=== PATIENT | female | born 2005 | race Caucasian/White ===

== ENCOUNTER 2024-11-10 13:07 | Outpatient (AMB) | payer OTHER, SELFPAY ==
[2024-11-10 13:14] VITALS: BMI 17.8
--- NOTE | 2024-11-10 13:14 | A.SPINEOV_ITS ---
Vital Signs 11/10/24 13:14 Height 5 ft 4 in Weight 104 lb BMI 17.8 Intake Visit Reasons: chronic midline low back pain Intake Note: Ms. Villa is here today c/o Chronic midline to Low back pain. Contracting Support Specialist Required: No Allergies No Known Allergies Allergy (Verified 11/10/24 13:15) Assessment & Plan Assessment & Plan (1) Lumbar radiculopathy: Code(s): M54.16 - Radiculopathy, lumbar region Category: Medical Plan Dear LORNE Eagle, Thank you for referring Wen to our office today. She is a pleasant 19-year-old female who comes in today for evaluation of low back pain and shooting pain into her bilateral lower extremities. She reports this has been ongoing for about 2 years. She denies any known inciting incident for pain. She reports that he has waxed/waned in intensity since initial onset, but more recently over the course of the last year or so it has significantly worsened. When describing the pain she reports that it starts in her low back, travels into her posterior buttocks, over the lateral thigh, and down toward the lateral calf terminating near the top of her foot. This happens in both her right and left leg, however she reports her right leg pain is worse. Her pain has now gotten to the point where she is unable to properly sleep at night and wakes up several times throughout the night in pain. She states that standing and walking exacerbates her pain, and that sitting down helps to alleviate it. She has attempted OTC medication such as tylenol / ibuprofen but states it does not help the pain at all. She has also attempted physical therapy but states this only caused her worsening / increased pain. She states that she did attempt an injection with our colleagues at [facility], however reports it was fairly traumatic for her in terms of pain, and further states that about 1-2 weeks after the injection she began experiencing nocturnal enuresis. This has now progressed to daytime enuresis as well. She reports that if she does not take 1-2 of her desmopressin pills at night before bed she will wet herself, and will be more likely to have episodes of incontinence throughout the day as well. She denies any issues with bowel incontinence, and denies any perineal numbness. PMH: Subclinical hyperthyroidism, anxiety disorder, depressive disorder, panic disorder, fibromyalgia, juvenile idiopathic arthritis, migraines. Social hx: The patient vapes nicotine and uses cannabis recreationally. Denies any other substance use. Medications: Desmopressin, aripiprazole, dextroamphetamine, duloxetine, sumatriptan. Allergies: NKDA. Physical exam: The patient has full 5/5 strength of her upper and lower extremities, however does elicit pain to full strength testing of her lower extremities. She has no significant sensational deficits to light touch on examination. Her reflexes are 2+ intact. She ambulates with a nonspastic and nonantalgic gait. (+) Right sided straight leg raise, (-) left sided. (-) Merlos's. (-) Clonus. Imaging review: MRI of the lumbar spine completed at [facility] in February of 2024 shows a right-sided paracentric disc herniation at L5-S1 causing moderate- severe right-sided foraminal stenosis at this level. Impression: Wen is a pleasant 19-year-old female that comes in today for evaluation of low back pain and shooting pains into her bilateral lower extremities. The dermatomal distribution of her pain matches the disc herniation seen at L5-S1. Clinically, the patient is suffering from a lumbar radiculopathy which is secondary to the disc herniation seen on MRI imaging. It is difficult to say if her enuresis is stemming from disc herniation worsening or was a result of the attempted injection completed by our colleagues at [email or web address]. Her MRI imaging is now about [id number], in the context of worsening pain and incontinence I believe we need to obtain an updated MRI to ensure the herniation seen has not significantly worsened. Generally speaking it is standard practice for our office to try and refrain from performing spine surgery on younger patients such as Wen. Given this, her symptoms seem quite severe, and she has thoroughly attempted conservative measures without meaningful relief. Depending on the status of her disc herniation based on new MRI imaging we will obtain, we may need to consider minimally invasive L5-S1 microdiscectomy. I briefly reviewed this procedure with the patient in office today utilizing our spine models. I will call her with the results of her MRI, and review her case with Dr. Walsh when it is read by radiology. Thank you for allowing us to care for your patient. The total time spent with this visit with this patient was 45 minutes reviewing history, physical exam, MRI imaging review, and implementation of treatment plan or further diagnostic testing Eugene Walsh MD,PhD [facility] Orders: Orders MR lumbar spine wo con Today M54.16 - Radiculopathy, lumbar region Coding Level of Care Code New Pt Level 4 (01502) Diagnoses Lumbar radiculopathy M54.16
--- OUTSIDE RECORDS SUMMARY | 2024-11-10 13:20 | XMS_ITS ---
Author Name [facility] Organization Unknown History of Medication Use Medication Directions Dispensed Refills Start Date End Date Stat us L norgest/e.estradioL-e .estrad 0.1 mg-20 mcg (84)/10 mcg (7) Tablet, Dose Pack, 3 Months Take 1 tablet by mouth daily 06/02/2022 active fluconazole (DIFLUCAN) 150 MG tablet TAKE 1 TABLET BY MOUTH ONCE 05/14/2022 active fluconazole (DIFLUCAN) 150 MG tablet TAKE 1 TABLET BY MOUTH ONCE 05/14/2022 active cyclobenzaprine (FLEXERIL) 5 MG tablet TAKE 1 TABLET 3 TIMES A DAY BY ORAL ROUTE NEEDED. 03/19/2022 06/26/2022 aborted cyclobenzaprine (FLEXERIL) 5 MG tablet TAKE 1 TABLET 3 TIMES A DAY BY ORAL ROUTE NEEDED. 03/19/2022 active GAVILAX 17 gram/dose powder DISSOLVE 1.5 CAPFULS IN 12 OZ OF LIQUID 3 TIMES DAILY FOR 2 DAYS 01/29/2022 active GAVILAX 17 gram/dose powder DISSOLVE 1.5 CAPFULS IN 12 OZ OF LIQUID 3 TIMES DAILY FOR 2 DAYS 01/29/2022 active nicotine (NICODERM CQ) 7 mg/24 hr patch APPLY 1 PATCH EVERY DAY BY TRANSDERMAL ROUTE FOR 42 DAYS. 01/29/2022 active celeCOXIB (CELEBREX) 100 MG capsule Take 1 capsule (100 mg) by mouth 2 (two) times daily 08/08/2021 active celeCOXIB (CELEBREX) 100 MG capsule Take 1 capsule (100 mg) by mouth 2 (two) times daily 12/08/2019 08/08/2021 active ARIPiprazole (ABILIFY) 2 MG tablet Take 2 mg by mouth daily active ARIPiprazole (ABILIFY) 2 MG tablet Take 2 mg by mouth daily active busPIRone (BUSPAR) 15 MG tablet Take 15 mg by mouth 2 (two) times daily active DULoxetine (CYMBALTA) 60 MG delayed release capsule Take 60 mg by mouth daily active DULoxetine (CYMBALTA) 60 MG delayed release capsule Take 60 mg by mouth daily active hydrOXYzine (ATARAX) 50 MG tablet Take by mouth active hydrOXYzine (ATARAX) 50 MG tablet Take by mouth active hydrOXYzine (ATARAX) 50 MG tablet Take by mouth active norethindrone-ethinyl estradiol (ORTHO-NOVUM 1-35 TAB,NORTREL 1-35 TAB) 1-35 mg-mcg per tablet Take by mouth daily active Allergies Allergen Reaction Severity Comment Documented Date Source Statu s [facility] ALLERGENIC EXTRACT SWELLING 02/23/2020 IN[facility] active VENOM-HONEY BEE SWELLING [facility] Problems Problem Status Onset Date Problem Type Date of Resolution Source Other depression active EncounterDiagnosisAct [facility] Amplified musculoskeletal pain syndrome active EncounterDiagnosisAct [facility] Dizziness on standing active EncounterDiagnosis Act [facility] Encounters Encounter Type Encounter Reason Primary Diagnosis Location Date Ambulatory [facility] 09/09/2022 Ambulatory [facility] 06/28/2022 Ambulatory [facility] 06/27/2022 Ambulatory [facility] 12/08/2021 Ambulatory [facility] 08/09/2021 Care Team Organization Name Specialty Phone Email Start Date End Da te [facility] RASHID KIRK Primary Care 06/27/2022 [facility] Heather Limon Primary Care 12/09/2021
--- OUTSIDE RECORDS SUMMARY | 2024-11-10 13:20 | XMS_ITS | Encounter Summary ---
Author Organization [facility] Address [address] [place] [phone] Phone Care Team Providers Care Lead Mason Tender Name Role Phone Soledad Osei MD Primary Care Provider Soledad Osei MD Unavailable [phone] Pcp, Unknown Unavailable Unavailable Pcp, Unknown Primary Care Provider Unavailabl e Heather Limon MD Primary Care Prov ider Heather Limon MD Unavailable + Heather Limon MD Primary Care Prov ider Kim Loomis RN Unavailable Jj HagenSW Unavailable [phone] Encounter Details Date Type Department Care Team (Latest Contact Info) Description 01/25/2019 Transcribe Orders [facility] Specimen Processing [address] [place] [address] Soledad Osei MD [address] [place] [address] Acute pharyngitis, unspecified etiology (Primary Dx) Social History Tobacco Use Types Packs/Day Years Used Date Smoking Tobacco: Never Assessed Comments Unknown Sex and Gender Information Value Date Recorded Sex Assigned at Not on file Legal Sex Female 8:43 PM EDT Gender Identity Not on file Sexual Orientation Not on file documented as of this encounter Plan of Treatment Not on file documented as of this encounter Results * (ABNORMAL) Streptococcus, Group A Culture (01/25/2019 8:31 PM EST) Special Requests None 01/25/2019 8:31 PM EST [facility] Group A Strep Culture Moderate BETA HEMOLYTIC STREP (NON-GROUP A)(A) 01/26/2019 7:46 AM EST [facility] Other (Throat) 01/25/2019 8: 31 PM EST 01/25/2019 8:36 PM EST Soledad Osei MD MICROBIOLOGY - GENERAL ORDERABLES Final Result Performing Organization Address City/State/[facility] Co de Phone Number [address] [address] documented in this encounter Visit Diagnoses Diagnosis Acute pharyngitis, unspecified etiology- Primary documented in this encounter Additional Health Concerns Infection Onset Date Last Indicated Resolved Time MRSA Comment:Import to add expiration date of 06/08/2021 per Infection Control as part of historical infection status reconciliation 01/18/2008 01/18/2008 06/09/19 22 1:35 AM EDT documented as of this encounter Care Teams Lead Mason Tender Relationship Specialty Start Date End Date Soledad Osei MD PCP - General Pediatrics 01/25/19 07/10/20 Pcp, Unknown PCP - Pediatrics 07/10/20 Pcp, Unknown PCP - General 11/19/20 01/12/22 Heather Limon MD [email or web address] PCP - General Family Medicine 01/13/22 03/04/23 Heather Limon MD [address] [place] [phone] [email or web address] PCP - General Family Medicine 03/05/23 Soledad Osei MD [address] [place] [phone] Insurance Assigned Provider 02/26/19 09/29/20 Heather Limon MD [address] [place] [phone] [email or web address] Insurance Assigned Provider 01/26/22 11/29/22 Kim Loomis RN [address] [place] [phone] [employer] Heat Plant Specialist 03/21/24 03/28/24 Jj Hagen LICSW [address] [place] [address] [email or web address] [employer] Social Work 07/01/24 07/28/24 documented as of this encounter Additional Source Comments The information contained in this document represents components of the legal health record. It is not the complete legal health record.[facility]
--- OUTSIDE RECORDS SUMMARY | 2024-11-10 13:20 | XMS_ITS | Clinical Summary ---
Author Organization [facility] Address [address] [place] [id number] Care Team Providers Care Dough Panner Name Role Phone Sonali Salas NP Primary Care Provider [phone] Source Comments Please note that some or all of the patient's information could have additional privacy protections. State laws allow health care providers to render certain types of treatment to minors without parental consent. Please do not assume that this information can be shared solely by obtaining just the consent of the patient's parent/guardian. Please determine if all or part of the patient's care was rendered without parent/guardian involvement. And, if so, obtain the minor's consent prior to disclosure.[facility] Allergies Active Allergy Reactions Criticality Noted Date Comments Venom-Honey Bee Swelling 02/23/2020 Mosquito Allergenic Extract Swelling 02/23/20 Medications ARIPiprazole (ABILIFY) 2 MG tablet Take 2 mg by mouth daily Active busPIRone (BUSPAR) 15 MG tablet Take 15 mg by mouth 2 (two) times daily Active hydrOXYzine (ATARAX) 50 MG tablet Take by mouth Active DULoxetine (CYMBALTA) 60 MG delayed release capsule Take 60 mg by mouth daily Active celeCOXIB (CELEBREX) 100 MG capsuleIndications: Amplified musculoskeletal pain syndrome Take 1 capsule (100 mg) by mouth 2 (two) times daily 60 capsule 5 08/09/19 Active Additional Information Patient not taking.Reported on 06/26/2022 norethindrone-ethin yl estradiol (ORTHO-NOVUM 1-35 TAB,NORTREL 1-35 TAB) 1-35 mg-mcg per tablet Take by mouth daily Active cyclobenzaprine (FLEXERIL) 5 MG tablet TAKE 1 TABLET 3 TIMES A DAY BY ORAL ROUTE NEEDED. 03/19/20 Active fluconazole (DIFLUCAN) 150 MG tablet TAKE 1 TABLET BY MOUTH ONCE 05/14/19 23 Active gabapentin (NEURONTIN) 300 MG capsule 06/23/19 Active L norgest/e.estradioL -e.estrad 0.1 mg-20 mcg (84)/10 mcg (7) Tablet, Dose Pack, 3 Months Take 1 tablet by mouth daily 06/03/19 Active metroNIDAZOLE (FLAGYL) 500 MG tablet Take 500 mg by mouth 2 (two) times daily 7 days 05/14/19 23 Active nicotine (NICODERM CQ) 7 mg/24 hr patch APPLY 1 PATCH EVERY DAY BY TRANSDERMAL ROUTE FOR 42 DAYS. 01/30/20 Active GAVILAX 17 gram/dose powder DISSOLVE 1.5 CAPFULS IN 12 OZ OF LIQUID 3 TIMES DAILY FOR 2 DAYS 01/30/20 Active Active Problems No known active problems Family History Medical History Relation Name Comments Anxiety disorder Brother Asperger's syndrome Brother Depression Brother Juvenile idiopathic arthritis Brother Anxiety disorder Mother Depression Mother Relation Name Status Comments Brother Mother Social History Tobacco Use Types Packs/Day Years Used Date Smoking Tobacco: Light Smoker Other Needs Answer Date Recorded Anything else about your child you'd like help w [facility]? Not on file 12/03/2022 Share good news about positive changes: Not on f ile 12/03/2022 Comments No Sex and Gender Information Value Date Recorded Sex Assigned at Not on file Legal Sex Female 2:26 AM EST Gender Identity Not on file Sexual Orientation Not on file Last Filed Vital Signs Vital Sign Reading Time Taken Comments Blood Pressure 105/70 06/26/2022 2:36 PM EDT Pulse 98 06/26/2022 2:36 PM EDT Temperature - - Respiratory Rate - - Oxygen Saturation 100% 12/23/2021 1:37 PM EDT Inhaled Oxygen Concentration - - Weight 48.4 kg (106 lb 11.2 oz) 06/26/2022 2:36 PM EDT Height 160.6 cm (5' 3.23 ) 06/26/2022 2:36 PM ED T Body Mass Index 18.77 06/26/2022 2:36 PM EDT Plan of Treatment Health Maintenance Due Date Last Done Comments DTaP/TDAP/TD VACCINES (1 - Tdap) 09/12/2011 ADOLESCENT HIV SCREENING 2017 COVID-19 Vaccine (2023-2 5 season) 2023 INFLUENZA (Season Ended) 2024 NIRSEVIMAB VACCINES UNDER 8 MONTHS Aged Out No longer eligible based on patient's age to complete this topic Insurance [place] [id number] Care Teams Dough Panner Relationship Specialty Start Date End Date Sonali Salas NP [address] [place] [phone] PCP - General Family Medicine 12/17/21
== END 2024-11-10 13:42 | disposition home or self-care (01) ==
LOC: HO.HNS 13:07
PROVIDERS: PCP Nurse Practitioner Primary Care; Referring Provider Nurse Practitioner Family; Visit Provider Physician Assistant
DX: M54.16 Radiculopathy, lumbar region (principal)
CPT/HCPCS: 99204